=== PATIENT | female | born 1960 | race Caucasian/White ===

== ENCOUNTER 2017-02-24 09:01 | Emergency (ER) | payer MEDICAID ==
[2017-02-24] MEDS ORDERED: HYDROmorphone 1 MG/ML Syringe IVPUSH ONE ×2 (10:21→12:42)
[2017-02-24] MEDS ORDERED: Ondansetron 4 MG/2 ML SDV IVPUSH ONE (10:21)
--- NOTE | 2017-02-24 10:26 | EDM.PDOC ---
ED HPI GENERAL MEDICAL PROBLEM - General Chief Complaint: Genitourinary Problem Stated Complaint: KIDNEY STONE? Time Seen by Provider: 02/24/17 10:18 Source of Information: Reports: Patient, RN Notes Reviewed History Limitations: Reports: No Limitations - History of Present Illness INITIAL COMMENTS - FREE TEXT/NARRATIVE: 56-year-old female presents emergency department today with complaint of right flank pain that we will wax and wane rates the pain 10 out of 10 does have a history of nephrolithiasis, she is nauseated Right Flank Pain Score (Numeric/FACES): 9 - Related Data Allergies Allergy/AdvReac Type Severity Reaction Status Date / Time No Known Allergies Allergy Verified 02/24/17 09:27 Home Meds: Home Meds *Ogen 1.5 mg PO DAILY 02/24/17 [History] Albuterol Sulfate [Ventolin Hfa] 8 gm IH Q6H PRN 02/24/17 [History] Clobetasol [Clobetasol Propionate 0.05%] 45 gm TOP BID PRN 02/24/17 [History] Fluticasone Propionate [Flovent HFA 110 MCG] 2 puff INH BID PRN 02/24/17 [ History] Liothyronine [Cytomel] 25 mcg PO DAILY 02/24/17 [History] Multivitamin [Daily Multiple Vitamin] 1 tab PO DAILY 02/24/17 [History] SUMAtriptan [Imitrex] 25 mg PO ASDIRECTED PRN 02/24/17 [History] buPROPion [Wellbutrin XL] 1 tab PO DAILY 02/24/17 [History] Past Medical History HEENT History: Reports: Impaired Vision Respiratory History: Reports: Asthma Gastrointestinal History: Reports: Other (See Below) Other Gastrointestinal History: ruptured diaphram 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 Dermatologic History: Reports: Other (See Below) Other Dermatologic History: hands RASH - Infectious Disease History Infectious Disease History: Reports: Chicken Pox, Mumps - Past Surgical History GI Surgical History: Reports: Appendectomy, Colonoscopy Female Surgical History: Reports: Hysterectomy, Nephrectomy, Salpingo- Oophorectomy Musculoskeletal Surgical History: Reports: Other (See Below) Other Musculoskeletal Surgeries/Procedures:: back pain fusion L1,2,3 Social & Family History - Tobacco Use Smoking Status *Q: Never Smoker Second Hand Smoke Exposure: No - Caffeine Use Caffeine Use: Reports: Coffee, Soda - Alcohol Use Days Per Week of Alcohol Use: 0 - Recreational Drug Use Recreational Drug Use: No ED ROS GENERAL - Review of Systems Review Of Systems: See Below Constitutional: Denies: Fever, Chills HEENT: Reports: No Symptoms Respiratory: Reports: No Symptoms Cardiovascular: Reports: No Symptoms GI/Abdominal: Reports: Nausea : Reports: Flank Pain Musculoskeletal: Reports: No Symptoms Skin: Reports: No Symptoms ED EXAM, GI/ABD - Physical Exam Exam: See Below Exam Limited By: No Limitations General Appearance: Alert, WD/WN, No Apparent Distress Respiratory/Chest: No Respiratory Distress, Lungs Clear, Normal Breath Sounds, No Accessory Muscle Use, Chest Non-Tender Cardiovascular: Regular Rate, Rhythm, No Murmur GI/Abdominal Exam: Soft, Guarding, Tender (Along the right flank). No: Distended, Rigid Course - Vital Signs Last Recorded V/S: Last Vital Signs Temp 96.3 F 02/24/17 10:15 Pulse 57 L 02/24/17 13:49 Resp 16 02/24/17 13:49 BP 155/85 H 02/24/17 13:49 Pulse Ox 97 02/24/17 13:49 - Orders/Labs/Meds Orders: Active Orders 24 hr Category Date Time Status Peripheral IV Care [RC] . DIRECTED Care 02/24/17 10:23 Active Sodium Chloride 0.9% [Saline Flush] Med 02/24/17 10:22 Active 10 ml FLUSH ASDIRECTED PRN Peripheral IV Insertion Adult [OM.PC] Urgent Oth 02/24/17 10:22 Ordered Medication Orders Sodium Chloride (Saline Flush) 10 ml FLUSH ASDIRECTED PRN PRN Reason: Keep Vein Open Last Admin: 02/24/17 10:51 Dose: 10 ml Admin: 02/24/17 10:46 Dose: 10 ml Labs: Laboratory Tests 02/24/17 02/24/17 02/24/17 Range/Units 09:56 10:27 10:27 WBC 5.4 (4.5-11.0) K/uL RBC 4.95 (3.30-5.50) M/uL Hgb 14.2 (12.0-15.0) g/dL Hct 42.3 (36.0-48.0) % MCV 86 (80-98) fL MCH 29 (27-31) pg MCHC 34 (32-36) % Plt Count 222 (150-400) K/uL Neut % (Auto) 59 (36-66) % Lymph % (Auto) 31 (24-44) % Hart % (Auto) 7 H (2-6) % Eos % (Auto) 2 (2-4) % Baso % (Auto) 1 (0-1) % Sodium 140 (140-148) mmol/L Potassium 4.3 (3.6-5.2) mmol/L Chloride 105 (100-108) mmol/L Carbon Dioxide 27 (21-32) mmol/L Anion Gap 8.2 (5.0-14.0) mmol/L BUN 19 H (7-18) mg/dL Creatinine 1.4 H (0.6-1.0) mg/dL Est Cr Clr Drug Dosing 43.63 mL/min Estimated GFR (MDRD) 39 L (>60) Glucose 97 (74-106) mg/dL Calcium 9.4 (8.5-10.1) mg/dL Urine Color Yellow Urine Appearance Slightly cloudy Urine pH 5.0 (4.5-8.0) Ur Specific [place] 1.015 (1.008-1.030) Urine Protein Negative (NEGATIVE) mg/dL Urine Glucose (UA) Normal (NEGATIVE) mg/dL Urine Ketones Negative (NEGATIVE) mg/dL Urine Occult Blood Negative (NEGATIVE) Urine Nitrite Negative (NEGATIVE) Urine Bilirubin Negative (NEGATIVE) Urine Urobilinogen Normal (NORMAL) mg/dL Ur Leukocyte Esterase Negative (NEGATIVE) Urine RBC 0-5 (0-5) Urine WBC 0-5 (0-5) Ur Epithelial Cells Moderate Amorphous Sediment Not seen Urine Bacteria Moderate Urine Mucus Not seen Meds: Medications Generic Name Dose Route Start Last Admin Trade Name Freq PRN Reason Stop Dose Admin Sodium Chloride 10 ml 02/24/17 10:22 02/24/17 10:51 Saline Flush FLUSH 10 ml ASDIRECTED PRN Administration Keep Vein Open Discontinued Medications Generic Name Dose Route Start Last Admin Trade Name Gennaroq PRN Reason Stop Dose Admin Hydromorphone HCl 1 mg 02/24/17 10:21 02/24/17 10:48 Dilaudid IVPUSH 02/24/17 10:22 1 mg ONETIME ONE Administration Hydromorphone HCl 1 mg 02/24/17 12:42 02/24/17 13:22 Dilaudid IVPUSH 02/24/17 12:43 1 mg ONETIME ONE Administration Ondansetron HCl 4 mg 02/24/17 10:21 02/24/17 10:47 Zofran IVPUSH 02/24/17 10:22 4 mg ONETIME ONE Administration Departure - Departure Time of Disposition: 14:32 Disposition: Home, Self-Care 01 Condition: Good Clinical Impression: Renal colic on right side - Discharge Information Referrals: PCP,None [Primary Care Provider] - Forms: ED Department Discharge Additional Instructions: Use hydrocodone as needed for pain control, use Zofran as needed for nausea and vomiting symptoms, Please followup with your primary care provider in 3-5 days if not better, please call return to the emergency department with worsening of symptoms. - My Orders Last 24 Hours: My Active Orders 02/24/17 10:22 Sodium Chloride 0.9% [Saline Flush] 10 ml FLUSH ASDIRECTED PRN Peripheral IV Insertion Adult [OM.PC] Urgent 02/24/17 10:23 Peripheral IV Care [RC] . DIRECTED - Assessment/Plan Last 24 Hours: My Active Orders 02/24/17 10:22 Sodium Chloride 0.9% [Saline Flush] 10 ml FLUSH ASDIRECTED PRN Peripheral IV Insertion Adult [OM.PC] Urgent 02/24/17 10:23 Peripheral IV Care [RC] . DIRECTED Plan: Assessment Acuity = acute Site and laterality = right flank pain Etiology = probable renal colic Manifestations = nausea Location of injury = Home Lab values = CBC, CMP unremarkable ultrasound shows no acute process, CT scan no acute findings Plan She had some relief with Dilaudid and Zofran provided should be discharged home with hydrocodone 5/325 one tab by mouth 3 times a day when necessary total #10 tablets as well as Zofran 4 mg ODT by mouth 3 times a day when necessary follow- up with primary care 3-5 days if not better Patient was in agreement with the plan all questions were answered, they were instructed to return to the emergency department or call for worsening symptoms. This note was dictated using [employer] voice recognition software please call with any questions.
[2017-02-24] MEDS: Sodium Chloride 0.9% 10 ML Syringe FLUSH PRN ×2 (10:46→10:51)
--- NOTE | 2017-02-24 12:28 | US ---
Abdomen Ltd INDICATION: right flank pain FINDINGS: Normal hepatic echotexture. No intra- or extrahepatic bile duct dilatation. The gallbladder is mildly contracted. Aorta and IVC are normal where visualized. Pancreas is normal where seen. Surv ey views of the right kidney demonstrates slight prominence of the calyces but no evidence for juan luis hydronephrosis. There is normal color flow to the right kidney. IMPRESSION: Slight prominence of the right renal calyces but no evidence for juan luis hydronephrosis.
--- NOTE | 2017-02-24 14:18 | CT ---
Abdomen Pelvis wo Cont Total DLP 527 mGycm. INDICATION: right flank pain COMPARISON: None. FINDINGS: Postoperative changes left nephrectomy. No evidence for right renal, ureteral, or bladder c alculus. The appendix is not identified but there are no secondary signs for acute appendicitis. Hype rtrophic changes thoracic spine. Surgical clips in the pelvis. Exam otherwise unremarkable. IMPRESSION: No acute findings in the abdomen or pelvis.
== END 2017-02-24 14:52 | disposition home or self-care (01) ==
LOC: JP.ED 09:01
DX: N23 Unspecified renal colic (principal); J45.909 Unspecified asthma, uncomplicated; F32.9 Major depressive disorder, single episode, unspecified; E03.9 Hypothyroidism, unspecified; Z87.442 Personal history of urinary calculi; Z79.899 Other long term (current) drug therapy; Z90.710 Acquired absence of both cervix and uterus
CPT/HCPCS: 36415; 74176; 76705; 80048; 81001; 85025; 96374; 96375; 96376; 99284; J1170; J2405; J7050

== ENCOUNTER 2018-05-07 06:02 | Day surgery (SDC) | payer MEDICAID ==
[2018-05-07] MEDS ORDERED: Sodium Chloride 0.9% 1,000 ML IV SCH ×2 (07:00→07:34)
[2018-05-07] MEDS ORDERED: Lactated Ringers 1,000 ML IV SCH (07:00)
[2018-05-07] MEDS ORDERED: Midazolam 1 MG/ML 2 ML SDV ONE (07:45)
[2018-05-07] MEDS ORDERED: fentaNYL 100 MCG/2 ML SDV ONE (07:45)
[2018-05-07] MEDS ORDERED: Propofol 200 MG/20 ML SDV ONE ×2 (07:45→08:04)
--- NOTE | 2018-05-07 12:38 | OR ---
DATE OF PROCEDURE: 05/07/2018 PREOPERATIVE DIAGNOSES: Dysphagia, abdominal pain, history of pelvic angiomyxoma. POSTOPERATIVE DIAGNOSES: Gastroesophageal reflux disease; 3 cm hiatal hernia; dysphagia, etiology unknown; abdominal pain, etiology unknown; small proximal transverse colon polyp. PROCEDURE PERFORMED: Esophagogastroduodenoscopy with biopsy of gastroesophageal junction, colonoscopy to the cecum with biopsy resection of small proximal transverse colon polyp. ANESTHESIA: IV anesthesia with monitored anesthesia care. INDICATION: This 57-year-old white female is referred for upper and lower endoscopy. Indications include dysphagia, abdominal pain. She has a history of aggressive pelvic angiomyxoma. 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 She says her last colonoscopic exam was done 8 years ago. I counseled her for the procedure including risks and alternatives and she gave her informed consent to proceed. DESCRIPTION OF PROCEDURE: The patient was placed in the left lateral decubitus position. IV anesthesia was administered by the Anesthesia Service. Time-out was held. The flexible video Olympus upper endoscope was passed through her mouth, down her esophagus, and into her stomach. The scope was easily passed through the pylorus, into the duodenum, reaching its third portion. The scope was then slowly withdrawn examining the mucosa throughout. The duodenal mucosa appeared unremarkable. The scope was brought up through the pylorus. The antrum appeared unremarkable. The scope was retroflexed. The proximal stomach appeared unremarkable except for a hiatal hernia which was seen. The scope was straightened and brought up through the hiatal hernia. It measured about 3 cm in length. The gastroesophageal junction appeared chronically inflamed. We obtained multiple totalling at least 6 biopsies of the gastroesophageal junction. The scope was then brought up through the remainder of the esophagus which otherwise appeared unremarkable and it was removed. Next, a rectal exam was performed which was unremarkable. The flexible video Olympus colonoscope was introduced through her anus, up her rectum, and out her colon, all the way to the cecum. En route, we saw a small polyp in the proximal transverse colon which was removed with the biopsy forceps. Once the cecum was reached, the scope was slowly withdrawn examining the mucosa throughout. No additional mucosal abnormalities were noted. The scope was retroflexed in the rectum with the distal rectum appearing unremarkable. The scope was straightened and removed. She tolerated the procedure well. Bruce Daley MD /[id number]
== END 2018-05-07 10:15 | disposition home or self-care (01) ==
LOC: JP.SDS 06:02
PROVIDERS: ATTEND Surgery
DX: K20.9 Esophagitis, unspecified (principal); K44.9 Diaphragmatic hernia without obstruction or gangrene; R10.9 Unspecified abdominal pain; D12.3 Benign neoplasm of transverse colon; K21.9 Gastro-esophageal reflux disease without esophagitis; N18.9 Chronic kidney disease, unspecified; J45.909 Unspecified asthma, uncomplicated; E03.9 Hypothyroidism, unspecified; Z90.5 Acquired absence of kidney; Z87.39 Personal history of other diseases of the musculoskeletal system and connective tissue; Z87.448 Personal history of other diseases of urinary system; Z88.8 Allergy status to other drugs, medicaments and biological substances; Z88.6 Allergy status to analgesic agent
CPT/HCPCS: 43239; 45380; J2250; J2704; J3010; J7030

== ENCOUNTER 2018-11-30 18:21 | Emergency (ER) | payer MEDICAID ==
[2018-11-30] MEDS ORDERED: Adenosine 6 MG/2 ML SDV IVPUSH ONE (18:37)
[2018-11-30] MEDS ORDERED: Adenosine 6 MG/2 ML SDV ONE (18:38)
--- NOTE | 2018-11-30 18:48 | EDM.PDOC ---
ED HPI GENERAL MEDICAL PROBLEM - General Chief Complaint: Cardiovascular Problem Stated Complaint: HEART RACING Time Seen by Provider: 11/30/18 18:35 Source of Information: Reports: Patient History Limitations: Reports: Other (limited old records) - History of Present Illness INITIAL COMMENTS - FREE TEXT/NARRATIVE: 58 yo female presents with tachycardia and some chest pain. Sx's for just a few minutes. Had the same thing about 6 yrs ago and was seen at [facility]. She doesn't recall what they called it. Says her normal HR is in the 50's. Does not have a hx of CAD. Onset: Today, Sudden Onset Date: 11/30/18 Onset Time: 18:05 Duration: Minutes:, Constant Location: Reports: Chest Quality: Reports: Dull Severity: Mild Improves with: Reports: None Worsens with: Reports: None Context: Reports: Other (see HPI) Associated Symptoms: Reports: Chest Pain (mild), Diaphoresis, Shortness of Breath (mild) Treatments HAUNTED HISTORY TOUR GUIDE: Reports: Other (see below) (Tried Valsalva without success) - Related Data Allergies Allergy/AdvReac Type Severity Reaction Status Date / Time BHARAT Inhibitors Allergy Other Verified 05/07/18 06:56 measles, mumps, and rubella Allergy Other Verified 05/07/18 06:56 vaccine NSAIDS (Non-Steroidal Allergy Other Verified 05/07/18 06:56 Anti-Inflamma Home Meds: Home Meds Clobetasol [Clobetasol Propionate 0.05%] 1 film TOP BID PRN 02/24/17 [History] Liothyronine [Cytomel] 25 mcg PO DAILY 02/24/17 [History] SUMAtriptan [Imitrex] 25 mg PO ASDIRECTED PRN 02/24/17 [History] buPROPion [Wellbutrin XL] 300 mg PO DAILY 02/24/17 [History] Estropipate 1 mg PO DAILY 10/22/17 [History] Cholecalciferol (Vitamin D3) [Vitamin D3] 2,000 unit PO DAILY 05/05/18 [History] Vitamin B Complex [B Complex] 1 tab PO DAILY 05/05/18 [History] Past Medical History HEENT History: Reports: Impaired Vision Respiratory History: Reports: Asthma Gastrointestinal History: Reports: GERD, PUD, Other (See Below) Other Gastrointestinal History: ruptured diaphram [employer]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 Dermatologic History: Reports: Other (See Below) Other Dermatologic History: hands RASH - Infectious Disease History Infectious Disease History: Reports: Chicken Pox, Mumps - Past Surgical History HEENT Surgical History: Reports: None Respiratory Surgical History: Reports: None GI Surgical History: Reports: Appendectomy, Colonoscopy, EGD Female Surgical History: Reports: Breast Biopsy, Hysterectomy, Nephrectomy, Salpingo-Oophorectomy Neurological Surgical History: Reports: Spinal Fusion Musculoskeletal Surgical History: Reports: Other (See Below) Other Musculoskeletal Surgeries/Procedures:: back pain fusion L1,2,3 Social & Family History - Caffeine Use Caffeine Use: Reports: Coffee ED ROS GENERAL - Review of Systems Review Of Systems: See Below Constitutional: Reports: No Symptoms HEENT: Reports: No Symptoms Respiratory: Reports: Shortness of Breath (mild) Cardiovascular: Reports: Chest Pain (mild), Other (tachycardia) Endocrine: Reports: No Symptoms GI/Abdominal: Reports: No Symptoms : Reports: No Symptoms Musculoskeletal: Reports: No Symptoms Skin: Reports: Diaphoresis (mild) Neurological: Reports: No Symptoms Psychiatric: Reports: Anxiety ED EXAM, GENERAL - Physical Exam Exam: See Below Exam Limited By: No Limitations General Appearance: Alert, WD/WN, Mild Distress Eye Exam: Bilateral Eye: Normal Inspection Ears: Normal External Exam, Normal Canal, Hearing Grossly Normal Ear Exam: Bilateral Ear: Auricle Normal, Canal Normal Nose: Normal Inspection, No Blood Throat/Mouth: Normal Inspection, Normal Lips, Normal Oropharynx, Normal Voice, No Airway Compromise Head: Atraumatic, Normocephalic Neck: Normal Inspection Respiratory/Chest: No Respiratory Distress, Lungs Clear, Normal Breath Sounds, No Accessory Muscle Use Cardiovascular: Regular Rate, Rhythm, No Edema, Tachycardia GI/Abdominal: Soft, Non-Tender Back Exam: Normal Inspection Extremities: Normal Inspection, Normal Range of Motion, Non-Tender, No Pedal Edema Neurological: Alert, CN II-XII Intact, Normal Cognition, No Motor/Sensory Deficits Psychiatric: Normal Affect, Normal Mood Skin Exam: Warm, Intact, Normal Color, No Rash, Other (slightly sweaty) ED CARDIOLOGY PROCEDURES - Additional/Other Procedure(s) Other (Free Text) Procedure(s): Gave Adenocard 6 mg IV and patient converted to sinus tachycardia, gradual slowing to sinus rhythm. EKG INTERPRETATION EKG Date: 11/30/18 Time: 18:40 Rhythm: NSR Rate (Beats/Min): 94 [place]: Normal P-Wave: Present QRS: Normal ST-T: Normal QT: Normal Comparison: NA - No Prior EKG (Post-Adenocard EKG) Course - Orders/Labs/Meds Orders: Active Orders 24 hr Category Date Time Status Cardiac Monitoring [RC] .As Directed Care 11/30/18 18:22 Active EKG Documentation Completion [RC] ASDIRECTED Care 11/30/18 18:37 Active EKG 12 Lead [EK] Routine Ther 11/30/18 18:37 Ordered Meds: Medications Discontinued Medications Generic Name Dose Route Start Last Admin Trade Name Isael PRN Reason Stop Dose Admin Adenosine 6 mg 11/30/18 18:37 11/30/18 18:54 Adenocard IVPUSH 11/30/18 18:38 6 mg NOW ONE Administration Adenosine Confirm 11/30/18 18:38 11/30/18 18:53 Adenocard Administered 11/30/18 18:39 Not Given Dose 6 mg .ROUTE .STK-MED ONE Departure - Departure Time of Disposition: 19:35 Disposition: Home, Self-Care 01 Condition: Good Clinical Impression: PSVT (paroxysmal supraventricular tachycardia) Instructions: Supraventricular Tachycardia, Adult, [id number] Referrals: PCP,None [Primary Care Provider] - Forms: ED Department Discharge Additional Instructions: Watch a You Tube video on optimal methods for performing a valsalva maneuver. If you try this next time you have a bout of PSVT and it doesn't work, then come in and be treated. - My Orders Last 24 Hours: My Active Orders 11/30/18 18:22 Cardiac Monitoring [RC] .As Directed 11/30/18 18:37 EKG Documentation Completion [RC] ASDIRECTED EKG 12 Lead [EK] Routine - Assessment/Plan Last 24 Hours: My Active Orders 11/30/18 18:22 Cardiac Monitoring [RC] .As Directed 11/30/18 18:37 EKG Documentation Completion [RC] ASDIRECTED EKG 12 Lead [EK] Routine
== END 2018-11-30 20:07 | disposition home or self-care (01) ==
LOC: JP.ED 18:21
DX: I47.1 Supraventricular tachycardia (principal); E03.9 Hypothyroidism, unspecified; G43.909 Migraine, unspecified, not intractable, without status migrainosus; F32.9 Major depressive disorder, single episode, unspecified; Z88.7 Allergy status to serum and vaccine; Z88.8 Allergy status to other drugs, medicaments and biological substances; Z88.6 Allergy status to analgesic agent; Z79.899 Other long term (current) drug therapy
CPT/HCPCS: 93005; 96374; 99284; J0153

== ENCOUNTER 2019-07-28 09:14 | Day surgery (SDC) | payer MEDICAID ==
[2019-07-28] MEDS ORDERED: ceFAZolin 2 GM in Premix Bag 1 BAG IV ONE (09:45)
[2019-07-28] MEDS ORDERED: Dextrose 5%-Lactated Ringers 1,000 ML IV SCH (09:45)
[2019-07-28] MEDS ORDERED: Acetaminophen 500 MG Tab PO ONE (09:45)
[2019-07-28] MEDS ORDERED: Bupivacaine 0.5% 50 ML MDV ONE (10:20)
[2019-07-28] MEDS ORDERED: Lidocaine 1% with EPINEPHrine 1:100,000 50 ML MDV ONE (10:20)
[2019-07-28] MEDS ORDERED: Meropenem 500 MG SDV ONE (10:21)
[2019-07-28] MEDS ORDERED: Bacitracin Oint 1 GM U/D Packet ONE (10:21)
[2019-07-28] MEDS ORDERED: Glycopyrrolate 0.2 MG/ML 5 ML MDV ONE (11:29)
[2019-07-28] MEDS ORDERED: Neostigmine Methylsulfate 1 MG/ML 5 ML Syringe ONE (11:29)
[2019-07-28] MEDS ORDERED: Rocuronium 50 MG/5 ML Vial ONE (11:29)
[2019-07-28] MEDS ORDERED: Propofol 200 MG/20 ML SDV ONE (11:29)
[2019-07-28] MEDS ORDERED: fentaNYL 250 MCG/5 ML SDV ONE (11:29)
[2019-07-28] MEDS ORDERED: Ondansetron 4 MG/2 ML SDV ONE (11:29)
[2019-07-28] MEDS ORDERED: Dexamethasone 4 MG/ML SDV ONE (11:29)
--- NOTE | 2019-07-28 11:57 | US ---
Head Neck Soft Tissue Bi THYROID CLINICAL HISTORY: Thyroid nodule on CT FINDINGS: Right lobe measures 3.8 x 1.6 x 1.2 cm. There is a 7 x 6 x 7 cm nodule in the lower portion of the right lobe with central coarse calcification Left lobe measures 4.4 x 2.1 x 1.9 cm. The there is a 2.3 x 2.0 x 1.6 cm complex nodule in the mid to upper pole. There is a 1.2 x 1.1 x 1.4 cm heterogeneous nodule in the lower pole. IMPRESSION: Bilateral thyroid nodules Largest in the on the left is complex measuring 2.3 x 2.0 x 1.6 cm. There is internal flow. FNA biopsy should be considered.
--- NOTE | 2019-08-02 08:38 | OR ---
DATE OF PROCEDURE: 07/28/2019 SURGEON: Sylvain Garcia MD PREOPERATIVE DIAGNOSES: 1. Radiologically suspicious left thyroid nodules x2. 2. Probable lipoma, left flank. POSTOPERATIVE DIAGNOSES: 1. Radiologically suspicious left thyroid nodules x2. 2. 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 PROCEDURE: 1. Fine-needle aspiration of left thyroid nodules x2 ([id number], [id number]). 2. Excision of subfascial lipoma, left flank (76099). ANESTHESIA: General. INDICATION FOR PROCEDURE: A 59-year-old female presenting with a lesion in the right sternoclavicular joint which, on workup, appeared to be a fluid collection likely related to arthritis at that level. Workup, however, revealed a large left thyroid nodule. Formal ultrasound of the thyroid showed this to be 2 separate, both quite large nodules on the left thyroid lobe. There is no significant pathology on the right and no cervical adenopathy noted on the ultrasound. The patient also has an increasing in size palpable lipoma from the left flank, slightly superior to previous incision used for nephrectomy, and the plan is to proceed with an ultrasound-guided fine-needle aspiration of the left thyroid nodules, as well as excision of the probable lipoma. Potential risks including bleeding, infection, possible misdiagnosis of the thyroid nodules, possible recurrence of the lipoma were all reviewed, and the patient wishes to proceed. DETAILS OF PROCEDURE: The patient was taken to the operating room and placed in the supine position. After general endotracheal anesthesia was induced, initially the upper chest and neck areas were prepped and draped. Using continuous ultrasound, both thyroid nodules were aspirated twice, first with a 20-gauge needle then the 18-gauge needle. All 4 aspirates were relatively blood free, and sent separately in [place] solution. The patient was then turned into a right lateral decubitus position. The previously marked area of the lipoma was once again palpated and incision made over it with a transverse orientation. This was carried down through the skin and subcutaneous tissue. The lipoma appeared to be in the subfascial plane, right below what would be the level of Camper's fascia, and this was excised in what appeared to be an intact manner. The size of lesion was 6.5 cm. Deeper soft tissue was approximated with some 3-0 and 4-0 Vicryl stitch deep, and justyna for the skin. The patient was taken to the recovery room in satisfactory condition. The plan will be to see the patient back next Thursday for followup and review of the thyroid nodule pathology. Sylvain Garcia MD /[id number]
== END 2019-07-28 14:34 | disposition home or self-care (01) ==
LOC: JP.SDS 09:14
PROVIDERS: ATTEND Surgery
DX: D17.1 Benign lipomatous neoplasm of skin and subcutaneous tissue of trunk (principal); E04.2 Nontoxic multinodular goiter; J45.909 Unspecified asthma, uncomplicated; F32.9 Major depressive disorder, single episode, unspecified; N18.3 Chronic kidney disease, stage 3 (moderate); E78.5 Hyperlipidemia, unspecified; E03.9 Hypothyroidism, unspecified; Z88.6 Allergy status to analgesic agent; Z88.7 Allergy status to serum and vaccine; Z88.8 Allergy status to other drugs, medicaments and biological substances; Z90.5 Acquired absence of kidney
CPT/HCPCS: 10005; 10006; 21933; 76536; 76998; 88112; 88304; A9270; J0690; J1100; J2405; J2704; J2710; J3010; J3490; J7121; J2185

== ENCOUNTER 2021-05-07 06:29 | Day surgery (SDC) | payer MEDICAID ==
[2021-05-07] MEDS ORDERED: Sodium Chloride 0.9% 1,000 ML IV SCH (07:00)
[2021-05-07] MEDS ORDERED: Propofol 200 MG/20 ML SDV ONE (07:10)
[2021-05-07] MEDS ORDERED: fentaNYL 100 MCG/2 ML SDV ONE (07:10)
[2021-05-07] MEDS ORDERED: Midazolam 1 MG/ML 2 ML SDV ONE (07:10)
== END 2021-05-07 09:11 | disposition home or self-care (01) ==
LOC: JP.SDS 06:29
PROVIDERS: ATTEND Surgery
DX: Z12.11 Encounter for screening for malignant neoplasm of colon (principal); J45.909 Unspecified asthma, uncomplicated; Z86.010 Personal history of colon polyps
CPT/HCPCS: J2250; J2704; J3010; J7030

== ENCOUNTER 2021-06-03 15:33 | Emergency (ER) | payer MEDICAID ==
[2021-06-03] MEDS ORDERED: Sodium Chloride 0.9% 500 ML IV ONE (15:47)
[2021-06-03] MEDS ORDERED: fentaNYL 100 MCG/2 ML SDV IVPUSH ONE (15:47)
== END 2021-06-03 17:57 | disposition home or self-care (01) ==
LOC: JP.ED 15:33
DX: R10.13 Epigastric pain (principal); R10.12 Left upper quadrant pain; R11.2 Nausea with vomiting, unspecified; Q60.0 Renal agenesis, unilateral; R03.0 Elevated blood-pressure reading, without diagnosis of hypertension; K21.9 Gastro-esophageal reflux disease without esophagitis; Z86.16 Personal history of COVID-19; Z79.899 Other long term (current) drug therapy; E03.9 Hypothyroidism, unspecified
CPT/HCPCS: 36415; 74176; 80048; 80076; 80305; 81001; 83605; 83690; 85025; 86140; 96374; 99282; 99284; J3010; J7040